=== PATIENT | female | born 1955 | race Caucasian/White ===

== ENCOUNTER 2019-05-26 10:12 | Emergency (ER) | payer MEDICARE, OTHER, SELFPAY ==
[2019-05-26 10:30] VITALS: BP 102/63; PULSE 80; RESP 14; TEMP 36.3; O2SAT 96
--- NOTE | 2019-05-26 10:45 | ED.GENADULT ---
HPI - General Adult General Chief complaint: Upper Respiratory Infection Stated complaint: sinus pain/pressure Time Seen by Provider: 05/26/19 10:47 Source: patient and RN notes reviewed Mode of arrival: ambulatory Limitations: no limitations History of Present Illness HPI narrative: This is a 63 years old female presented office for evaluation of Possible sinus infection. Symptoms began 8 days ago with sinus pressure, headache, sinus drainage and decrease appetite. Denies sick contact. Stated she gets sinus infection a couple times a year.She has tried many [id number] sinus spray and humidifier with no relief. Related Data Home Medications Medication Instructions Recorded Confirmed cyanocobalamin (vitamin B-12) 5,000 mcg SUBCUT MONTHLY 05/26/19 05/26/19 ergocalciferol (vitamin D2) 50,000 unit PO WEEKLY 05/26/19 05/26/19 [Vitamin D2] Allergies Allergy/AdvReac Type Severity Reaction Status Date / Time No Known Allergies Allergy Unknown Verified 05/26/19 10:38 Review of Systems Review of Systems: Narrative: CONSTITUTIONAL: Denies fever. Reports feeling malaise/fatigue EYES: Denies visual changes ENT: Reports sinus congestion, scratchy throat, and ears pressure. CARDIOVASCULAR: Denies chest pain, palpitation RESPIRATORY: Denies dyspnea, wheezing. Reports a little cough contributed to drainage. GASTROINTESTINAL: Denies abdominal pain, nausea, vomiting, diarrhea. GENITOURINARY: Denies urinary symptoms SKIN: Denies rash MUSCULOSKELETAL: Denies acute back pain NEUROLOGIC: Denies lightheaded PMFSH Past Medical History Medical History (Updated 05/26/19 @ 11:00 by EDWIN Hernandez) Arthritis GERD (gastroesophageal reflux disease) Sleep apnea Surgical History Surgical History (Updated 05/26/19 @ 10:47 by EDWIN Hernandez) H/O spinal fusion c4-T1 Hx of cholecystectomy Hx of tubal ligation Social History Social History (Updated 05/26/19 @ 10:47 by EDWIN Hernandez) Social History: quite 2006 Smoking status: Former smoker Comments At time of signature, I agree with nursing past medical, surgical, social and family history. There is no relevant family history pertinent to the presenting complaint. Exam Narrative: Exam Narrative: GENERAL: This is a well-nourished, well-developed patient, in no apparent distress. EYES:Sclera clear/white. Vision is grossly intact. EARS: External ears normal, auditory canals clear and without drainage, TMs normal without perforation. Hearing grossly intact. NOSE: External nose normal with no obvious nasal discharge, nares without redness, no rhinorrhea. Sinus tenderness. THROAT: Mucous membranes moist, posterior pharynx erythema with drainage. NECK: Neck supple, non-tender without lymphadenopathy, masses or thyromegaly. CARDIOVASCULAR: Regular rate and rhythm without murmurs, gallops, or rubs. RESPIRATORY: Clear to auscultation. Breath sounds equal bilaterally. No wheezes, rales, or rhonchi. GASTROINTESTINAL: Abdomen soft, non-tender, nondistended. Bowel sounds are active. No guarding. SKIN: warm, intact with no suspicious lesions or rash, good texture and turgor. NEURO: awake, alert, and oriented to person, place and time. There were no obvious focal neurologic abnormalities. Steady gait [place] Coma Scale Eye Opening: Spontaneous 4 [place] Coma Scale Motor: Obeys Commands 6 [place] Coma Scale Verbal: Oriented 5 Course Vital Signs Vital signs: Vital Signs Temperature 97.4 F L 05/26/19 10:30 Pulse Rate 80 05/26/19 10:30 Respiratory Rate 14 05/26/19 10:30 Blood Pressure 102/63 05/26/19 10:30 Pulse Oximetry 96 05/26/19 10:30 Temperature 97.4 F L 05/26/19 10:30 Pulse Rate 80 05/26/19 10:30 Respiratory Rate 14 05/26/19 10:30 Blood Pressure 102/63 05/26/19 10:30 Pulse Oximetry 96 05/26/19 10:30 Medical Decision Making MDM Narrative Medical decision making narrative: Discharge instructions review
== END 2019-05-26 11:06 | disposition home or self-care (01) ==
PROVIDERS: Emergency Provider Nurse Practitioner; PCP Internal Medicine
DX: J00 Acute nasopharyngitis [common cold] (principal); J01.90 Acute sinusitis, unspecified; Z87.891 Personal history of nicotine dependence; M19.90 Unspecified osteoarthritis, unspecified site; K21.9 Gastro-esophageal reflux disease without esophagitis; G47.30 Sleep apnea, unspecified
CPT/HCPCS: 99213; G0463

== ENCOUNTER 2019-06-01 10:03 | Emergency (ER) | payer MEDICARE, OTHER, SELFPAY ==
[2019-06-01 10:15] VITALS: BP 118/74; PULSE 75; RESP 20; TEMP 37.4; O2SAT 96
--- NOTE | 2019-06-01 11:04 | ED.URI ---
HPI - URI/Sore Throat General Chief Complaint: Upper Respiratory Infection Stated Complaint: sinus pressure/pain Time Seen by Provider: 06/01/19 10:50 Source: patient Mode of arrival: ambulatory Limitations: no limitations History of Present Illness HPI Narrative: Kimberly Anderson is a 63 yo female with PMH of sinus infections [facility] infection. She was treated here 5 days ago with Ceftin and has not improved Related Data Home Medications Medication Instructions Recorded Confirmed cyanocobalamin (vitamin B-12) 5,000 mcg SUBCUT MONTHLY 05/26/19 06/01/19 ergocalciferol (vitamin D2) 50,000 unit PO WEEKLY 05/26/19 06/01/19 [Vitamin D2] Allergies Allergy/AdvReac Type Severity Reaction Status Date / Time No Known Allergies Allergy Unknown Verified 06/01/19 10:22 Review of Systems Review of Systems: Narrative: CONSTITUTIONAL: Denies fever, chills, sweats. EYES: Denies visual changes, redness, discharge. ENT: Has rhinorrhea, has congestion, sore throat, otalgia. CARDIOVASCULAR: Denies chest pain, palpitations, edema. RESPIRATORY: Denies dyspnea, wheezing, cough GASTROINTESTINAL: Denies abdominal pain, nausea, vomiting, diarrhea. GENITOURINARY: Denies dysuria, hematuria, abnormal discharge SKIN: Denies rash or itching. NEUROLOGIC: Denies numbness, or focal weakness. PSYCHIATRIC: Denies anxiety or depression. PMFSH Past Medical History Medical History Arthritis GERD (gastroesophageal reflux disease) Sleep apnea Surgical History Surgical History H/O spinal fusion c4-T1 Hx of cholecystectomy Hx of tubal ligation Social History Social History (Updated 06/01/19 @ 11:06 by Preeti Appiah CNP) Social History: quite 2006 Smoking status: Former smoker Alcohol intake: current Comments At time of signature, I agree with nursing past medical, surgical, social and family history. There is no relevant family history pertinent to the presenting complaint. Exam Narrative: Exam Narrative: GENERAL: This is a well-nourished, well-developed patient, in mild apparent distress. HEAD: normocephalic, atraumatic. EYES: Sclera clear/white. Vision is grossly intact. EARS: External ears normal, Hearing grossly intact. NOSE: External nose normal with nasal discharge, nares without redness, no rhinorrhea. THROAT: Mucous membranes moist, posterior pharynx erythema NECK: Neck supple, non-tender CARDIOVASCULAR: Regular rate and rhythm without murmurs, gallops, or rubs. RESPIRATORY: Clear to auscultation. Breath sounds equal bilaterally. No wheezes, rales, or rhonchi. GASTROINTESTINAL: Abdomen soft, SKIN: warm, intact with no suspicious lesions or rash, good texture and turgor. NEURO: awake, alert, and oriented to person, place and time. There were no obvious focal neurologic abnormalities. Steady gait EXTREMITIES: Normal range of motion. BACK: Nontender without deformity or crepitance. No flank tenderness. Course Course Emergency Course: Patient has been on Ceftin and is now running low-grade temperature;at the request the patient started on Zithromax, Mucinex added. Discussed pros and cons of using Augmentin patient has a lot of GI problems with Augmentin and if this prescription does not work for clearing her sinusitis she will return Vital Signs Vital signs: Vital Signs Temperature 99.3 F 06/01/19 10:15 Pulse Rate 75 06/01/19 10:15 Respiratory Rate 20 06/01/19 10:15 Blood Pressure 118/74 06/01/19 10:15 Pulse Oximetry 96 06/01/19 10:15 Temperature 99.3 F 06/01/19 10:15 Pulse Rate 75 06/01/19 10:15 Respiratory Rate 20 06/01/19 10:15 Blood Pressure 118/74 06/01/19 10:15 Pulse Oximetry 96 06/01/19 10:15 MDM - URI/Sore Throat Differential Diagnosis Differential diagnosis: Likely upper respiratory infection, sinusitis, br
== END 2019-06-01 11:12 | disposition home or self-care (01) ==
PROVIDERS: Emergency Provider Nurse Practitioner; PCP Internal Medicine
DX: J01.10 Acute frontal sinusitis, unspecified (principal); Z87.891 Personal history of nicotine dependence; M19.90 Unspecified osteoarthritis, unspecified site; K21.9 Gastro-esophageal reflux disease without esophagitis; G47.30 Sleep apnea, unspecified
CPT/HCPCS: 99213; G0463

== ENCOUNTER 2019-12-30 09:43 | Emergency (ER) | payer MEDICARE, SELFPAY ==
--- NOTE | ~2019-12-30 | XR_ITS ---
EXAMINATION: XR shoulder LT min 2V DATE: 12/30/2019 10:07 INDICATION: Left shoulder pain. TECHNIQUE: 3 views of left shoulder were obtained. COMPARISON: Left shoulder radiographs 06/30/12 FINDINGS: Bone alignment is normal. No fracture. There is mild osteoarthritis of glenohumeral joint a nd moderate osteoarthritis of acromioclavicular joint. There are loose bodies in the glenohumeral eugene nt. There are changes of anterior fusion procedure in cervicothoracic spine. IMPRESSION: 1. Polyarticular osteoarthritis. 2. Loose bodies in the glenohumeral joint. Reviewed, dictated and finalized at location A.
[2019-12-30 09:45] VITALS: BP 135/78; PULSE 61; RESP 18; TEMP 36.6; O2SAT 97
[2019-12-30] MEDS: HYDROcodone/acetaminophen (*CRX) 5-325 MG TABLET 1 TAB PO (10:10)
[2019-12-30] MEDS: ONDANSETRON HCL ODT 4 MG TABLET PO (10:10)
--- NOTE | 2019-12-30 10:28 | ED.UPPEXIN ---
HPI - Extremity Injury (Upper) General Chief Complaint: Extremity Injury, Upper Stated Complaint: FELL - L SHOULDER PAIN Time Seen by Provider: 12/30/19 09:44 Source: patient Mode of arrival: ambulatory Limitations: no limitations History of Present Illness HPI narrative: This patient is a 64 year old female who presents for evaluation of left shoulder pain. She states she was walking with boxes when she lost her balance causing her to fall. She fell with an outstretched left hand . She reports she has severe left shoulder pain but she did not fall onto her shoulder. This happened just prior to arrival so she has not taken anything pain. She thought she may have dislocated her left shoulder. Her pain is worse with movement so she does not want to move her arm. She has not pain distal to her shoulder. She denies numbness, tingling or weakness. Related Data Home Medications Medication Instructions Recorded Confirmed No Home Medications 12/30/19 12/30/19 Allergies Allergy/AdvReac Type Severity Reaction Status Date / Time No Known Allergies Allergy Unknown Verified 12/30/19 09:49 Review of Systems Review of Systems: All systems reviewed & are unremarkable except as noted in HPI and below PMFSH Past Medical History Medical History (Updated 12/30/19 @ 11:13 by Laisha Bernal MD) Arthritis GERD (gastroesophageal reflux disease) Sleep apnea Surgical History Surgical History H/O spinal fusion c4-T1 Hx of cholecystectomy Hx of tubal ligation Social History Social History (Updated 06/01/19 @ 11:06 by Preeti Appiah CNP) Social History: quite 2006 Smoking status: Former smoker Alcohol intake: current Gender identity (if verbalized by the patient): Female Exam Const: General: no acute distress and alert Orientation/consciousness: patient oriented x3 HENMT: Head: normocephalic and atraumatic Face and sinus: face symmetric Eyes: EOM: EOMs intact bilaterally Resp: Effort & Inspection: normal respiratory effort Skin: General skin exam: normal color Rashes: no rashes Neuro: General: patient oriented x3 and moves all extremities Extrem: Other: left shoulder- no swelling, no deformity, no erythma. Patient hold left arm against body flexion, able to passively move left shoulder. strong radial pulse felt.s Psych: Mental Status: mental status grossly normal Course Reevaluation(s) Reevaluation #1: I discussed with patient that xray was negative. I discussed discharge plan Date: 12/30/19 Time: 11:10 Vital Signs Vital signs: Vital Signs Temperature 97.8 F 12/30/19 09:45 Pulse Rate 61 12/30/19 09:45 Respiratory Rate 18 12/30/19 09:45 Blood Pressure 135/78 12/30/19 09:45 Pulse Oximetry 97 12/30/19 09:45 Temperature 97.8 F 12/30/19 10:40 Pulse Rate 72 12/30/19 11:21 Respiratory Rate 18 12/30/19 11:21 Blood Pressure 132/76 12/30/19 11:21 Pulse Oximetry 97 12/30/19 11:21 MDM - Extremity Injury (Upper) Imaging Data Radiologist's impression: ITS Impressions Shoulder X-Ray 12/30/19 10:08 IMPRESSION: 1. Polyarticular osteoarthritis. 2. Loose bodies in the glenohumeral joint. Discharge Plan Discharge Clinical Impression: Acute pain of left shoulder, Osteoarthritis of left shoulder Patient Disposition: Home, Self-Care Condition: Stable Instructions: How to Use a Sling (ED), Shoulder Sprain (ED), Shoulder Pain (ED) Additional Instructions: Follow up with your primary care physician if your pain does not improve after 1 week. Take NSAIDS such as aleve or ibuprofen for your pain. Prescriptions: No Action No Home Medications RF: 0 Follow-up/Referrals: Joshua,Sampson Burgos MD [Primary Care Provider] -
[2019-12-30 10:40] VITALS: TEMP 36.6
[2019-12-30 11:21] VITALS: BP 132/76; PULSE 72; RESP 18; O2SAT 97
== END 2019-12-30 11:22 | disposition home or self-care (01) ==
PROVIDERS: Emergency Provider General Practice; PCP Internal Medicine
DX: M19.012 Primary osteoarthritis, left shoulder (principal); K21.9 Gastro-esophageal reflux disease without esophagitis; G47.30 Sleep apnea, unspecified; Z98.1 Arthrodesis status; Z87.891 Personal history of nicotine dependence
CPT/HCPCS: 73030; 99283; A4565; A9270